=== PATIENT | male | born 1985 | race Caucasian/White ===

== ENCOUNTER 2017-02-10 21:20 | Emergency (ER) | payer BC ==
[~2017-02-10] VITALS: Ht 177.8 cm; Wt 64.9 kg
[2017-02-10 23:43] VITALS: BP 103/61
== END 2017-02-10 23:23 | disposition home or self-care (01) ==
LOC: ED 21:20
DX: S61.411A Laceration without foreign body of right hand, initial encounter (principal); S66.911A Strain of unspecified muscle, fascia and tendon at wrist and hand level, right hand, initial encounter; V89.9XXA Person injured in unspecified vehicle accident, initial encounter; Y93.89 Activity, other specified; Y92.89 Other specified places as the place of occurrence of the external cause; Y99.8 Other external cause status
CPT/HCPCS: J2001

== ENCOUNTER 2017-08-30 11:52 | Emergency (ER) | payer BC ==
[2017-08-30 16:10] VITALS: BP 118/77
== END 2017-08-30 16:10 | disposition home or self-care (01) ==
LOC: ED 11:52
DX: S70.02XA Contusion of left hip, initial encounter (principal); S80.02XA Contusion of left knee, initial encounter; V00.131A Fall from skateboard, initial encounter; Y93.21 Activity, ice skating; Y92.89 Other specified places as the place of occurrence of the external cause; Y99.8 Other external cause status
CPT/HCPCS: J1885

== ENCOUNTER 2018-01-20 17:12 | Emergency (ER) | payer BC ==
[~2018-01-20] VITALS: Ht 177.8 cm; Wt 63.5 kg
[2018-01-20 17:36] VITALS: Ht 177.8 cm; Wt 63.5 kg
[2018-01-20 19:40] VITALS: BP 144/88
== END 2018-01-20 19:43 | disposition home or self-care (01) ==
LOC: ED 17:12
DX: S66.912A Strain of unspecified muscle, fascia and tendon at wrist and hand level, left hand, initial encounter (principal); S56.812A Strain of other muscles, fascia and tendons at forearm level, left arm, initial encounter; W05.1XXA Fall from non-moving nonmotorized scooter, initial encounter; Y93.89 Activity, other specified; Y92.89 Other specified places as the place of occurrence of the external cause; Y99.8 Other external cause status